=== PATIENT | female | born 1980 | race Caucasian/White ===

== ENCOUNTER → 2022-07-10 | Outpatient (CLI) | payer OTHER ==
--- NOTE | 2022-07-11 19:47 | MM ---
Reason for Exam: Screening (asymptomatic). Last mammogram was performed 19 year(s) and 0 month(s) ago. Patient History: Menarche at age 13. First Full-Term at age 27. Hormonal Contraceptives for 20 years from age 16 until age 36. Maternal aunt had breast cancer, age 40. Risk Values: Jacque 5 year model risk: 0.6%. NCI Lifetime model risk: 11.1%. Prior Study Comparison: 06/23/2003 Bilateral Diagnostic Mammogram, [facility]. Tissue Density: The breast tissue is heterogeneously dense. This may lower the sensitivity of mammography. Findings: Analyzed By CAD. Areas of asymmetric density do not clearly persist on 3-D images. A group of punctate microcalcifications lower inner quadrant left breast anterior depth are probably benign and can be reassessed in 6 months. Otherwise, no discrete abnormality seen. Overall Assessment: Probably benign, BI-RAD 3 Management: Diagnostic Mammogram of the left breast in 6 months. For the tiny grouped punctate microcalcifications on baseline exam. Patient should continue monthly self-breast exams. A clinical breast exam by your physician is recommended on an annual basis. This exam should not preclude additional follow-up of suspicious palpable abnormalities. Note on Jacque scores and lifetime risk: 1. A Jacque score greater than 3% is considered moderate risk. If this is the case, consider specialist referral to assess eligibility for a risk reducing agent. 2. If overall lifetime risk for the development of breast cancer is 20% or higher, the patient may qualify for future screening with alternating mammogram and breast MRI. Electronically signed and approved by: Merrick Shin M.D. Radiologist
== END | disposition home or self-care (01) ==
LOC: RADMAMWWP 13:35
PROVIDERS: ATTEND Obstetrics & Gynecology
DX: Z12.31 Encounter for screening mammogram for malignant neoplasm of breast (principal)
CPT/HCPCS: 77063; 77067